=== PATIENT | male | born 1955 | race Caucasian/White ===

== ENCOUNTER 2023-11-02 13:26 | Emergency (ER) | payer BC, MEDICARE ==
[2023-11-02] MEDS: Sodium Chloride 0.9% 1,000 ML IV ONE (14:58)
[2023-11-02 15:05] LABS: BASOPHILS ABSOLUTE AUTO 0.04 K/uL (0.00-0.20); BASOPHILS PERCENT AUTO 0.3 % (0.0-1.0); EOSINOPHILS ABSOLUTE AUTO 0.08 K/uL (0.00-0.45); EOSINOPHILS PERCENT AUTO 0.7 % (0.0-6.0); HEMATOCRIT 49.5 % (42.0-52.0); HEMOGLOBIN 17.6 g/dL (14.0-18.0); IMMATURE GRAN ABSOLUTE AUTO 0.06 K/uL (0.00-0.05); IMMATURE GRAN PERCENT AUTO 0.5 % (0.0-0.4); LYMPHOCYTES ABSOLUTE AUTO 2.56 K/uL (1.00-4.80); MEAN CORPUSCULAR HGB CONC 35.6 g/dL (32.0-36.0); MEAN PLATELET VOLUME 8.4 fL (9.4-12.4); MONOCYTES ABSOLUTE AUTO 1.01 K/uL (0.00-0.80); MONOCYTES PERCENT AUTO 8.3 % (0.0-8.0); NEUTROPHILS ABSOLUTE AUTO 8.43 K/uL (1.80-7.70); NEUTROPHILS PERCENT AUTO 69.2 % (41.0-71.0); PLATELET COUNT,PLT 243 K/uL (150-400); WHITE BLOOD CELL COUNT,WBC 12.18 K/uL (3.9-11.3)
[2023-11-02 15:34] LABS: ALBUMIN 3.7 g/dL (3.4-5.0); BILIRUBIN TOTAL 2.2 mg/dL (0.2-1.0); CALCIUM 9.6 mg/dL (8.5-10.1); CARBON DIOXIDE,CO2 33.5 mmol/L (21.0-32.0); EST CRCL DRUG DOSING (CG) 81.06 mL/min; POTASSIUM,K 4.2 mmol/L (3.5-5.1); PROTEIN TOTAL,TP 7.5 g/dL (6.4-8.2)
[2023-11-02] MEDS ORDERED: Iopamidol 755 MG/ML 500 ML Multipack Bottle IVPUSH STA (16:25)
[2023-11-02] MEDS: Ondansetron 4 MG/2 ML SDV IVPUSH ONE (16:54)
[2023-11-02] MEDS: Morphine 4 MG/ML Syringe IVPUSH ONE (16:54)
[2023-11-02 23:15] VITALS: BP 125/76; PULSE 85
== END 2023-11-02 21:56 | disposition home or self-care (01) ==
LOC: MW.ED 13:26
DX: R10.84 Generalized abdominal pain (principal); R19.7 Diarrhea, unspecified; I10 Essential (primary) hypertension; E78.00 Pure hypercholesterolemia, unspecified; Z79.899 Other long term (current) drug therapy; Z75.8 Other problems related to medical facilities and other health care
CPT/HCPCS: 36415; 74177; 80053; 83690; 85025; 87045; 87046; 87324; 87449; 87899; 96361; 96374; 96375; 99284; J2270; J2405; J7030

== ENCOUNTER 2023-12-05 08:15 | Day surgery (SDC) | payer MEDICARE, OTHER ==
[~2023-12-05 08:15] MED LIST: Sodium Chloride 0.9% 10 ML Syringe FLUSH PRN; Sodium Chloride 0.9% 2.5 ML Syringe FLUSH PRN; Sodium Chloride 0.9% 20 ML SDV IV PRN
[2023-12-05] MEDS: Lactated Ringers 1,000 ML IV SCH (08:39)
[2023-12-05] MEDS ORDERED: Glycopyrrolate 0.2 MG/ML SDV ONE (09:40)
[2023-12-05] MEDS ORDERED: propofoL 50 ML ONE (09:56)
[2023-12-05] MEDS ORDERED: fentaNYL 100 MCG/2 ML SDV ONE (10:10)
[2023-12-05] MEDS ORDERED: Phenylephrine HCl In 0.9% NaCl 1 MG/10 ML Syringe ONE (10:21)
[2023-12-05 11:07] VITALS: BP 107/60; PULSE 62
== END 2023-12-05 11:25 | disposition home or self-care (01) ==
LOC: MW.SDS 08:15
PROVIDERS: ATTEND Surgery
DX: K62.1 Rectal polyp (principal); I10 Essential (primary) hypertension; E78.00 Pure hypercholesterolemia, unspecified; I25.10 Atherosclerotic heart disease of native coronary artery without angina pectoris; Z79.82 Long term (current) use of aspirin; Z79.899 Other long term (current) drug therapy
CPT/HCPCS: 45380; J2371; J2704; J3010; J7120; 00811; J1596